=== PATIENT | male | born 1975 | race Caucasian/White ===

== ENCOUNTER → 2023-12-26 18:20 | Outpatient (CLI) | payer OTHER, MEDICAID, SELFPAY ==
--- NOTE | 2023-12-26 18:32 | DI.RAD.S_ITS ---
PROCEDURE: XR CERVICAL SPINE 2V OR 3V INDICATIONS: Radiating pain in bi shoulders/neck TECHNIQUE: Three view(s) of the cervical spine were acquired. COMPARISON: None. FINDINGS: Bones: Normal mineralization. No acute vertebral body fractures. Minimal, chronic appearing wedge deformity of T1, potentially congenital or remote posttraumatic. Mild facet sclerosis. Normal disk spacing. Odontoid view is normal. Soft tissues: No prevertebral soft tissue swelling. IMPRESSION: No radiographic explanation for radiculopathy. Dictated by: Faye Melgar M.D. on 12/26/2023 at 22:02 Approved by: Faye Melgar M.D. on 12/26/2023 at 22:08
== END ==
PROVIDERS: PCP Nurse Practitioner Family; Referring Provider Chiropractor; Visit Provider Chiropractor
DX: M99.01 Segmental and somatic dysfunction of cervical region (principal); M54.2 Cervicalgia; M54.6 Pain in thoracic spine
CPT/HCPCS: 72040